=== PATIENT | female | born 1960 | race African-American/Black ===

== ENCOUNTER 2017-08-24 11:02 | Emergency (ER) | payer OTHER ==
[~2017-08-24] VITALS: Ht 162.6 cm; Wt 91.6 kg
[~2017-08-24 11:02] MED LIST: AMBIEN 5 MG TABL5 M1 PO; LANOXIN 0.120.125 M1 PO; NAPROSYN500 MG PO; NORCO 5-325 TA1 EACH PO; TOPROL XL50 MG PO
[2017-08-24] MEDS ORDERED: NAPROSYN500 MG PO (11:23)
[2017-08-24 11:37] VITALS: BP 138/87
== END 2017-08-24 11:38 | disposition home or self-care (01) ==
LOC: ER 11:02
DX: S16.1XXA Strain of muscle, fascia and tendon at neck level, initial encounter (principal); S76.911A Strain of unspecified muscles, fascia and tendons at thigh level, right thigh, initial encounter; S00.83XA Contusion of other part of head, initial encounter; F17.210 Nicotine dependence, cigarettes, uncomplicated; I10 Essential (primary) hypertension; G43.909 Migraine, unspecified, not intractable, without status migrainosus; E78.00 Pure hypercholesterolemia, unspecified; W22.8XXA Striking against or struck by other objects, initial encounter; Y93.01 Activity, walking, marching and hiking; Y92.89 Other specified places as the place of occurrence of the external cause; Y99.8 Other external cause status